=== PATIENT | male | born 1945 | race Caucasian/White ===

== ENCOUNTER 2017-03-06 06:03 | Inpatient (IN) | payer MEDICARE, BC ==
[~2017-03-06 06:03] MED LIST: Buffered Lidocaine 0.9% SYRIN* 5 ML/SYR SYRINGE INTRADERM ONE; Famotidine TAB* 20 MG PO ONE
[2017-03-06] MEDS ORDERED: Famotidine TAB* 20 MG ONE (06:06)
[2017-03-06] MEDS ORDERED: ceFAZolin 2 GM PREMIX(*) 2 GM/50 ML BAG IVPB ONE (06:06)
[2017-03-06] MEDS ORDERED: Buffered Lidocaine 0.9% SYRIN* 5 ML/SYR SYRINGE ONE (06:06)
[2017-03-06] MEDS ORDERED: KETAMINE HCL* 50 MG/ML 10 ML VIAL ONE (07:28)
[2017-03-06] MEDS ORDERED: Midazolam* 1 MG/ML 5 ML VIAL (5 MG) ONE (07:28)
[2017-03-06] MEDS ORDERED: fentaNYL* 50 MCG/ML 2 ML VIAL (100 MCG VIAL) ONE (07:28)
[2017-03-06] MEDS ORDERED: ceFAZolin 1 GM in Dextrose (*) 1 GM/50 ML BAG IVPB ONE (07:30)
[2017-03-06] MEDS ORDERED: Morphine PF AMP (0.5MG/ML)* 5 MG/10 ML AMP ONE (07:43)
[2017-03-06] MEDS ORDERED: Lidocaine 2% PF * 5 ML VIAL ONE (08:10)
[2017-03-06] MEDS ORDERED: Ondansetron INJ* 2 MG/ML VIAL ONE (08:10)
[2017-03-06] MEDS ORDERED: Ketorolac INJ* 30 MG/ML 1 ML VIAL ONE (08:10)
[2017-03-06] MEDS ORDERED: Propofol* 10 MG/ML 20 ML BTL IV PUSH ONE (08:10)
[2017-03-06] MEDS ORDERED: ROPIVACAINE 5 MG/ML 30 ML BTL (0.5%) ONE (08:11)
[2017-03-06] MEDS ORDERED: Phenylephrine IV* 40 MCG/ML 10 ML SYRINGE ONE (08:12)
[2017-03-06] MEDS ORDERED: oxyCODONE/Acetamin 5/325 MG* TAB PO PRN ×2 (08:28→08:29)
[2017-03-06] MEDS ORDERED: HYDROmorphone* 1 MG/ML 1 ML SYR IV PRN (08:28)
[2017-03-06] MEDS ORDERED: DiMENhydriNATE IV* 50 MG/ML VIAL IV PUSH PRN (08:28)
[2017-03-06] MEDS ORDERED: Naloxone* 0.4 MG/ML 1 ML VIAL IV PRN (08:29)
[2017-03-06] MEDS ORDERED: Nalbuphine* 20 MG/ML 1 ML VIAL IV PRN (08:29)
[2017-03-06] MEDS ORDERED: Ondansetron INJ* 2 MG/ML VIAL IV PRN ×2 (08:29→09:57)
[2017-03-06] MEDS ORDERED: Gabapentin CAP(*) 300 MG PO ONE (09:05)
[2017-03-06] MEDS ORDERED: HYDROmorphone* 1 MG/ML 1 ML SYR ONE (09:13)
[2017-03-06] MEDS ORDERED: Ondansetron TAB* 4 MG PO PRN (09:57)
[2017-03-06] MEDS ORDERED: Polyethylene Glycol 3350* 17 GM PACKET PO PRN (09:57)
[2017-03-06] MEDS ORDERED: diPHENhydraMINE IV* 50 MG/ML 1 ml VIAL (BENADRYL) IV PRN (09:57)
[2017-03-06] MEDS ORDERED: Bisacodyl SUPP* 10 MG SUPP PR PRN (09:57)
[2017-03-06] MEDS ORDERED: Gabapentin CAP(*) 300 MG ONE (11:13)
--- NOTE | 2017-03-06 11:44 | RAD ---
Indication: Immediate postop exam following LEFT total knee replacement. Comparison: February 01, 2017 Technique: Portable AP and cross table lateral views LEFT knee. Report: Status post total knee replacement. Anterior cutaneous dagoberto. Post-op fluid and gas is seen in the joint space and anterior subcutaneous tissues. Alignment is anatomic. No periprosthetic fracture evident. IMPRESSION: Unremarkable immediate postoperative appearance following LEFT knee replacement.
--- NOTE | 2017-03-06 11:52 | CONSULT ---
Subjective Date of Service: 03/06/17 Interval History: Patient seen in PACU. States he is feeling well presently. Denies any pain, no nausea. Says the surgery went well. Has been feeling well leading up to this surgery aside from the fact this his "knee wore out". No chest pain, SOB. Cleared by Dr. Vidal, his boat hand, for the surgery. Family History: Findings - F - aneurysm, M - cancer Social History: Findings - Former smoker, 8 drinks/week, no illicit drug use Past Medical History: Findings - HTN, HLD, CAD s/p PCI, obesity, diet- controlled DM Review of Systems - Measurements Intake and Output: Intake and Output Last 24 Hours 03/04/17 03/05/17 03/06/17 03/07/17 06:59 06:59 06:59 06:59 Intake Total 1800 Output Total 250 Balance 1550 Weight 130.181 kg Intake: IV Fluids 1800 LR 1700 NS 50ML, Cefazolin 1G 50 NS 50ML, Cefazolin 2G 50 Output: Askew 250 - Review of Systems Constitutional Symptoms: Negative: Fatigue, Fever Dermatology: Positive: Normal HEENT: Positive: Normal Eyes: Positive: Normal Thyroid: Positive: Normal Pulmonary: Positive: Normal Cardiology: Positive: Normal Gastroenterology: Positive: Normal Genital - Urinary: Positive: Normal Musculoskeletal: Positive: Joint Pain, Joint Stiffness Endocrinology: Positive: Normal Hematologic/Lymphatic: Negative: Anemia Neurology: Positive: Normal Psychiatry: Positive: Normal Objective Active Medications: Acetaminophen (Tylenol Tab*) 650 mg PO Q4H PRN PRN Reason: pain, fever Amlodipine Besylate (Norvasc Tab*) 2.5 mg PO QAM JAN Aspirin (Aspirin Ec Low Dose*) mg PO QAM JAN Atorvastatin Calcium (Lipitor*) 80 mg PO QPM JAN Bisacodyl (Dulcolax Supp*) 10 mg AR DAILY PRN PRN Reason: constipation Cyclobenzaprine HCl (Flexeril Tab*) 10 mg PO Q8H PRN PRN Reason: pain, muscle spasms Dimenhydrinate (Dramamine Iv*) 12.5 mg IV PUSH ONCE PRN PRN Reason: NAUSEA/VOMITING Stop: 03/06/17 08:29 Diphenhydramine HCl (Benadryl Iv*) 12.5 mg IV Q6H PRN PRN Reason: PRURITIS Docusate Sodium (Colace Cap*) 100 mg PO BID [facility] Famotidine (Pepcid Tab*) 20 mg PO ONCE ONE Stop: 03/06/17 06:01 Last Admin: 03/06/17 06:22 Dose: 20 mg Gabapentin (Neurontin Cap(*)) 300 mg PO ONCE ONE Stop: 03/06/17 09:06 Last Admin: 03/06/17 11:14 Dose: 300 mg Heparin Sodium (Porcine) (Heparin Vial(*)) 5,000 units SUBCUT Q8HR [facility] Hydromorphone HCl (Dilaudid Iv*) 0.2 mg IV Q5M PRN PRN Reason: PAIN - SEVERE Stop: 03/06/17 08:49 Lactated Ringer's (Lactated Ringers 1000 Ml Bag*) 1,000 mls @ 125 mls/hr IV PER RATE [facility] Last Admin: 03/06/17 06:23 Dose: 125 mls/hr Dextrose/Sodium Chloride (D5w 1/2 Ns 1000 Ml Bag*) 1,000 mls @ 125 mls/hr IV PER RATE [facility] Cefazolin Sodium 1 gm/ Sodium (Chloride) 50 mls @ 200 mls/hr IVPB Q8H [facility] Stop: 03/07/17 03:14 Ibuprofen (Motrin Tab*) 600 mg PO Q6H JAN Lactulose (Lactulose*) 30 ml PO Q6H PRN PRN Reason: constipation Lidocaine/Sodium Bicarbonate (Buffered Lidocaine 0.9% Syrin*) 0.2 ml INTRADERM ONCE ONE Stop: 03/06/17 06:01 Last Admin: 03/06/17 06:23 Dose: 0.2 ml Lisinopril (Prinivil Tab*) 10 mg PO QAM [facility] Magnesium Hydroxide (Milk Of Magnesia Liq*) 30 ml PO BID [facility] Metoprolol Tartrate (Lopressor Tab*) 25 mg PO BID [facility] Morphine Sulfate (Morphine Inj (Syringe)*) 4 mg IV Q2H PRN PRN Reason: PAIN - BREAKTHROUGH Multivitamins (Theragran Tab*) 1 tab PO DAILY [facility] Nalbuphine HCl (Nubain*) 5 mg IV Q6H PRN PRN Reason: pruritis Naloxone HCl (Narcan*) 0.08 mg IV Q2M PRN PRN Reason: respiratory depression Non-Formulary Medication (Niacin [Niacin]) 1 tab PO BID JAN Ondansetron HCl (Zofran Inj*) 4 mg IV Q6H PRN PRN Reason: Nausea/Vomiting Ondansetron HCl (Zofran Inj*) 4 mg IV Q6H PRN PRN Reason: nausea Ondansetron HCl (Zofran Tab*) 4 mg PO Q6H PRN PRN Reason: NAUSEA Oxycodone HCl (Roxycodone Tab*) 10 mg PO Q3H PRN PRN Reason: PAIN - SEVERE Oxycodone/Acetaminophen (Percocet 5/325 Tab*) 1 tab PO ONCE PRN PRN Reason: PAIN - MODERATE Stop: 03/07/17 08:29 Oxycodone/Acetaminophen (Percocet 5/325 Tab*) 2 tab PO Q4H PRN PRN Reason: Moderate Pain Oxycodone/Acetaminophen (Percocet 5/325 Tab*) 1 tab PO Q3H PRN PRN Reason: PAIN - MODERATE Pantoprazole Sodium (Protonix Tab (Nf)) 40 mg PO QPM JAN Polyethylene Glycol/Electrolytes (Miralax*) 17 gm PO DAILY PRN PRN Reason: Constipation Warfarin Sodium (Coumadin Tab(*)) 10 mg PO ONCE@1700 ONE PRN Reason: Protocol Stop: 03/06/17 17:01 Vital Signs 03/06/17 03/06/17 03/06/17 06:42 10:00 10:05 Temperature 97.7 F 96.8 F Pulse Rate 71 72 68 Respiratory 14 16 16 Rate Blood Pressure 98/69 88/59 93/57 (mmHg) O2 Sat by Pulse 93 95 94 Oximetry 03/06/17 03/06/17 03/06/17 10:10 10:15 10:29 Temperature Pulse Rate 66 63 66 Respiratory 16 16 16 Rate Blood Pressure 85/54 89/58 94/63 (mmHg) O2 Sat by Pulse 95 95 98 Oximetry 03/06/17 03/06/17 03/06/17 10:45 11:00 11:15 Temperature 97.0 F Pulse Rate 66 61 73 Respiratory 16 16 16 Rate Blood Pressure 92/61 97/69 96/62 (mmHg) O2 Sat by Pulse 97 97 96 Oximetry Oxygen Devices in Use Now: None Appearance: Elderly, M, laying in bed in NAD Eyes: No Scleral Icterus, PERRLA Ears/Nose/Mouth/Throat: - - Dry MM Neck: NL Appearance and Movements; NL JVP Respiratory: Symmetrical Chest Expansion and Respiratory Effort, Clear to Auscultation Cardiovascular: NL Sounds; No Murmurs; No JVD, RRR Abdominal: NL Sounds; No Tenderness; No Distention Lymphatic: No Cervical Adenopathy Extremities: No Edema, - - L knee with cryounit in place, dressing underneath c/ d/i Skin: No Rash or Ulcers Neurological: Alert and Oriented x 3 Assessment/Plan - Billing L TKA in a 72 yo M with hx of HTN, HLD, CAD s/p PCI, diet-controlled DM, GERD, gout 1) L TKA - management as per ortho - Coumadin started by Ortho, HSQ - Hb/Hct, BMP ordered for AM 2) HTN - BPs soft post-op, will hold home Lisinopril and Norvasc, place hold parameters on Metoprolol 3) CAD - continue beta-boris, ASA, statin 4) DM - diet controlled - monitor BGs qACHS as ordered, hold on insulin coverage for now 5) GERD - continue PPI 6) Hx of kidney stones - continue home Bicitra (ordered) 7) DVT PPx - warfarin/HSQ Thank you for this consult, we will continue to follow
[2017-03-06] MEDS: D5W 1/2 NS 1000 ML BAG* 1,000 ML IV SCH ×2 (12:25→20:36)
[2017-03-06] MEDS: oxyCODONE/Acetamin 5/325 MG* TAB PO PRN ×2 (15:10→17:25)
[2017-03-06] MEDS: ceFAZolin VIAL(*) 1 GM in NS 0.9% 50 ML* 50 ML IVPB SCH (16:21)
[2017-03-06] MEDS: Ibuprofen TAB* 600 MG PO SCH ×2 (16:21→21:50)
[2017-03-06] MEDS ORDERED: Warfarin TAB(*) 10 MG PO ONE (17:00)
[2017-03-06] MEDS: Atorvastatin* 80 MG TAB PO SCH (18:33)
[2017-03-06] MEDS: Omeprazole CAP* 20 MG PO SCH (18:33)
[2017-03-06] MEDS ORDERED: Dextrose 50% Syringe 50 ML* 25 GM/50 ML SYRINGE IV PUSH PRN (19:26)
[2017-03-06] MEDS ORDERED: Metoprolol Tartrate TAB* 50 mg PO SCH (21:00)
[2017-03-06] MEDS: Metoprolol Tartrate TAB* 25 MG PO SCH (21:35)
[2017-03-06] MEDS: Docusate CAP* 100 MG PO SCH (21:35)
[2017-03-06] MEDS: Magnesium Hydroxide LIQ* 30 ML UDC PO SCH (21:37)
[2017-03-06] MEDS: Insulin LISPRO* 1 UNITS UNIT SUBCUT SCH (21:37)
[2017-03-06] MEDS: NIACIN 500 MG PO SCH (21:44)
--- NOTE | 2017-03-06 22:30 | OP ---
DATE OF OPERATION: 03/06/17 - ROOM #341 DATE OF : 49 ATTENDING SURGEON: Estevan Pittman MD MERCHANDISING PROFESSOR: KASIA Flores ANESTHESIA: Spinal and regional. PRE-OPERATIVE DIAGNOSIS: Osteoarthritis, left knee. POST-OPERATIVE DIAGNOSIS: Osteoarthritis, left knee. OPERATIVE PROCEDURE: Left total knee arthroplasty. ESTIMATED BLOOD LOSS: Less than 50 cc. COMPLICATIONS: None. HARDWARE: Corona Person[employer] #9 femur, G tibia 10 mm polyethylene, 38 mm all polyethylene patellar button. INDICATIONS: Mr. Gage is a 72-year-old male who has been having continued troubles with left knee pain. He has end-stage arthritis, being completely bone -on-bone in the weightbearing as well as patellofemoral portion of his knee with significant spurs, sclerosis, and cyst formation. I discussed with him that he already had had a total knee arthroplasty on the right and other than a periprosthetic fracture later on when he had fallen, he had done well. I discussed with him that a left total knee arthroplasty should work well to decrease his pain and improve his function. Risks of surgery such as infection , scar formation, stiffness, DVT, pulmonary embolism, hardware failure, and continued pain were some of the risks discussed. He had been declared medically optimized and wished to proceed. KASIA Flores was present throughout the case from positioning, prepping, incision, implanting and closing and it could not have been done without her. DESCRIPTION OF PROCEDURE: The patient was brought to the OR and a femoral nerve block was placed. Spinal anesthesia with Astramorph was also introduced. Askew catheter was placed and tourniquet was placed over the proximal left thigh. Total tourniquet time would be 64 minutes. Left knee was prepped and then draped. She was present for all of the positioning and was needed for retraction as well as placement of the implants and closure. Esmarch was used to exsanguinate the leg and the tourniquet was raised. Midline incision was made centered about the patella and was carried down to the medial side of the tibial tubercle and upwards for about 7 or 8 cm. Incision was carried down through the skin and subcutaneous fact. Small bleeders encountered were ligated using electrocautery. Extensor mechanism was exposed and a sharp parapatellar arthrotomy was made. Quite a bit of clear yellowish joint fluid was encountered. Soft tissues were sharply elevated from the medial side of the tibia and the fat pad was sharply excised. Patella measured 28 mm in thickness and a nice 11 mm cut was taken. Patella was then easily subluxated laterally. The knee was flexed up. Nice exposure of the distal femur was obtained. Step drill was used to open the femoral canal and an intramedullary guide was placed. This was set at 4 degrees and to take 2 mm and this was seated nicely and made parallel with the epicondyles before pinning into place. Distal femoral cutting guide was then pinned into place. Intra-medullary guide was removed and the distal femoral cut was taken. A nice cut was taken. Sizer was then used and it sat nicely between a 9 and a 10. I rather would under-size, so holes were drilled and a 9 was called for. A 9 was placed and checking the anterior cut with the drill, it felt that it came nicely right at the top side of the femoral cortex, so that I would not notch. Anterior and posterior femoral cuts followed by the chamfer cuts were all taken. Attention was turned to the tibia. Step drill was used on the tibial canal, intramedullary guide was placed. Outrigger was assembled and adjusted until it appeared it would take 2 mm from the worn medial side. Alignment was then double checked and the proximal tibial cutting guide was then pinned into place. Proximal tibial cut was taken. A nice cut was taken as well. A 10 spacer block was used and the alignment appeared perfect. With flexion, it was a little bit loose as the system is designed that way and in extension, he actually had just a tiny bit of play. I thought this would work well and we could size to an 11 if we needed to. Pins were removed and the proximal tibia was sized. The G sat very nicely. The drill was used and then the proximal tibia was punched. Attention was returned to the femur and the G was placed and the notch cut was made as was the stud hole drills. A 10 trial was then placed with the G tibia and he came out nicely into full extension, flexed quite well, and occasionally the patella would tend to slide off a little bit. Patella was sized and a 38 sat very nicely. Holes were drilled and trial was snapped into place. With the trial in place, patellar tracking was perfect. Trial instrumentation was removed and the knee was copiously pulse lavaged. Cement was being prepared. Tibia followed by femur and patella were all cemented into place. Excess cement was removed and the cement was allowed to harden. Once the cement had hardened, the knee was again copiously pulse lavaged and searched for cement. Several small pieces were found. Knee was again pulse lavaged and no additional cement was found, and the knee was trialed with a 10. He no longer had that same little bit of play that we had with the trial, so I went with the 10 instead of an 11. Polyethylene was then snapped into place. Knee was again copiously pulse lavaged and his motion was quite good. Parapatellar arthrotomy was repaired using interrupted #1 Vicryl sutures and the tourniquet was let down. No significant bleeding was encountered. Knee was again copiously pulse lavaged, and the subcutaneous tissues were reapproximated with 2-0 Vicryl, skin was closed using dagoberto. Sterile dressing and a Cryo/Cuff were applied in the OR. The patient was then awakened stable and transferred to the recovery room. [id number]/[facility] #: [id number] GONZALO
[2017-03-07] MEDS: ceFAZolin VIAL(*) 1 GM in NS 0.9% 50 ML* 50 ML IVPB SCH ×2 (00:32→07:56)
[2017-03-07] MEDS: oxyCODONE TAB* 5 MG TAB PO PRN ×7 (00:34→22:42)
[2017-03-07] MEDS: D5W 1/2 NS 1000 ML BAG* 1,000 ML IV SCH (04:25)
--- NOTE | 2017-03-07 07:36 | PN ---
Subjective Date of Service: 03/07/17 Interval History: Patient seen this morning. Some discomfort in the leg overnight affecting his sleep but overall feels OK. Pain meds do help. Askew just removed. No BM yet. Tolerated dinner without N/V. Family History: Unchanged from Admission Social History: Unchanged from Admission Past Medical History: Unchanged from Admission Objective Active Medications: Acetaminophen (Tylenol Tab*) 650 mg PO Q4H PRN Aspirin (Aspirin Ec Low Dose*) 81 mg PO QAM JAN Atorvastatin Calcium (Lipitor*) 80 mg PO QPM JAN Bisacodyl (Dulcolax Supp*) 10 mg SC DAILY PRN Citric Acid/Sodium Citrate (Bicitra*) 15 ml PO DAILY JAN Cyclobenzaprine HCl (Flexeril Tab*) 10 mg PO Q8H PRN Dextrose (D50w Syringe 50 Ml*) 12.5 gm IV PUSH .PER PROTOCOL PRN Diphenhydramine HCl (Benadryl Iv*) 12.5 mg IV Q6H PRN Docusate Sodium (Colace Cap*) 100 mg PO BID JAN Heparin Sodium (Porcine) (Heparin Vial(*)) 5,000 units SUBCUT Q8HR JAN Lactated Ringer's (Lactated Ringers 1000 Ml Bag*) 1,000 mls @ 125 mls/hr IV PER RATE JAN Dextrose/Sodium Chloride (D5w 1/2 Ns 1000 Ml Bag*) 1,000 mls @ 125 mls/hr IV PER RATE JAN Cefazolin Sodium 1 gm/ Sodium (Chloride) 50 mls @ 200 mls/hr IVPB Q8H [facility] Insulin Human Lispro (Humalog*) 0 units SUBCUT ACHS JAN Lactulose (Lactulose*) 30 ml PO Q6H PRN Magnesium Hydroxide (Milk Of Magnesia Liq*) 30 ml PO BID JAN Metoprolol Tartrate (Lopressor Tab*) 25 mg PO BID JAN Morphine Sulfate (Morphine Inj (Syringe)*) 4 mg IV Q2H PRN Multivitamins (Theragran Tab*) 1 tab PO DAILY [facility] Pto Med Niacin 500 (Mg Caps) 1 dose PO BID JAN Omeprazole (Prilosec Cap*) 20 mg PO QPM JAN Ondansetron HCl (Zofran Inj*) 4 mg IV Q6H PRN Ondansetron HCl (Zofran Tab*) 4 mg PO Q6H PRN Oxycodone HCl (Roxycodone Tab*) 10 mg PO Q3H PRN Oxycodone/Acetaminophen (Percocet 5/325 Tab*) 1 tab PO Q3H PRN Pharmacy Profile Note (Coumadin Daily Reminder*) 1 note FOLLOW UP 1700 JAN Polyethylene Glycol/Electrolytes (Miralax*) 17 gm PO DAILY PRN Vital Signs 03/06/17 03/06/17 03/06/17 10:00 10:05 10:10 Temperature 96.8 F Pulse Rate 72 68 66 Respiratory 16 16 16 Rate Blood Pressure 88/59 93/57 85/54 (mmHg) O2 Sat by Pulse 95 94 95 Oximetry 03/06/17 03/06/17 03/06/17 10:15 10:29 10:45 Temperature Pulse Rate 63 66 66 Respiratory 16 16 16 Rate Blood Pressure 89/58 94/63 92/61 (mmHg) O2 Sat by Pulse 95 98 97 Oximetry 03/06/17 03/06/17 03/06/17 11:00 11:15 11:50 Temperature 97.0 F 97.4 F Pulse Rate 61 73 62 Respiratory 16 16 16 Rate Blood Pressure 97/69 96/62 115/84 (mmHg) O2 Sat by Pulse 97 96 96 Oximetry 03/06/17 03/06/17 03/06/17 11:53 12:25 12:56 Temperature 97.4 F 98.4 F Pulse Rate 62 69 Respiratory 16 16 16 Rate Blood Pressure 115/84 112/79 (mmHg) O2 Sat by Pulse 96 98 Oximetry 03/06/17 03/06/17 03/06/17 13:23 14:08 15:10 Temperature 98.0 F Pulse Rate 77 Respiratory 16 16 18 Rate Blood Pressure 118/69 (mmHg) O2 Sat by Pulse 97 Oximetry 03/06/17 03/06/17 03/06/17 16:00 16:01 17:25 Temperature 97.8 F Pulse Rate 77 Respiratory 18 18 Rate Blood Pressure 106/68 (mmHg) O2 Sat by Pulse 97 94 Oximetry 03/06/17 03/06/17 03/06/17 18:16 19:17 19:25 Temperature 97.7 F Pulse Rate 94 Respiratory 17 18 20 Rate Blood Pressure 118/69 (mmHg) O2 Sat by Pulse 95 Oximetry 03/06/17 03/06/17 03/06/17 19:44 20:44 21:36 Temperature 98.1 F Pulse Rate 87 Respiratory 17 18 18 Rate Blood Pressure 105/64 (mmHg) O2 Sat by Pulse 95 95 Oximetry 03/06/17 03/06/17 03/06/17 21:48 23:21 23:30 Temperature 98.4 F Pulse Rate 92 Respiratory 16 18 18 Rate Blood Pressure 108/66 (mmHg) O2 Sat by Pulse 95 Oximetry 03/06/17 03/07/17 03/07/17 23:36 00:00 00:34 Temperature Pulse Rate Respiratory 18 18 Rate Blood Pressure (mmHg) O2 Sat by Pulse 95 Oximetry 03/07/17 03/07/17 03/07/17 03:22 04:23 06:23 Temperature 98.5 F Pulse Rate 82 Respiratory 16 18 16 Rate Blood Pressure 110/68 (mmHg) O2 Sat by Pulse 94 Oximetry Oxygen Devices in Use Now: Nasal Cannula - 2L Appearance: Elderly, M, laying in bed in NAD Eyes: No Scleral Icterus Ears/Nose/Mouth/Throat: Mucous Membranes Moist Neck: NL Appearance and Movements; NL JVP Respiratory: Symmetrical Chest Expansion and Respiratory Effort, Clear to Auscultation Cardiovascular: NL Sounds; No Murmurs; No JVD, RRR Abdominal: NL Sounds; No Tenderness; No Distention Lymphatic: No Cervical Adenopathy Extremities: No Edema, - - L cryounit in place over L knee Skin: No Rash or Ulcers Neurological: Alert and Oriented x 3 Assess/Plan/Problems-Billing L TKA in a 72 yo M with hx of HTN, HLD, CAD s/p PCI, diet-controlled DM, GERD, gout 1) L TKA - management as per ortho - Coumadin started by Ortho, HSQ - Hb/Hct, BMP pending today 2) HTN - BPs a bit higher this morning, will continue to hold home Lisinopril and Norvasc, place hold parameters on Metoprolol 3) CAD - continue beta-boris, ASA, statin 4) DM - diet controlled at home since after gastric bypass - BGs elevated here, getting dextrose in IVF, HISS started - will change from D5 1/2NS to LR 5) GERD - continue PPI 6) Hx of kidney stones - continue home Bicitra 7) DVT PPx - warfarin/HSQ Thank you for this consult, we will continue to follow
[2017-03-07 07:45] LABS: Hematocrit 37 % (42-52); Hemoglobin 12.6 g/dl (14.0-18.0)
[2017-03-07 07:50] LABS: Comments Flag Yes
[2017-03-07] MEDS: Morphine INJ* 4 MG/ML 1 ML SYRINGE IV PRN ×4 (07:50→17:14)
[2017-03-07 07:57] LABS: BUN/Creatinine Ratio 16.8 (8-20); Calcium 8.1 mg/dL (8.6-10.3); EGFR African American 93.9 (>60); Potassium 4.6 mmol/L (3.5-5.0)
[2017-03-07] MEDS: Insulin LISPRO* 1 UNITS UNIT SUBCUT SCH ×4 (08:35→21:23)
[2017-03-07] MEDS: Metoprolol Tartrate TAB* 25 MG PO SCH ×2 (08:36→21:20)
[2017-03-07] MEDS: Sodium Citrate/Citric Acid* 15 ML UDC PO SCH (08:36)
[2017-03-07] MEDS: Vitamin THERAPEUTIC TAB PO SCH (08:36)
[2017-03-07] MEDS: Docusate CAP* 100 MG PO SCH ×2 (08:36→21:20)
[2017-03-07] MEDS: Aspirin EC Low Dose* 81 MG TAB.EC PO SCH (08:36)
[2017-03-07] MEDS: Magnesium Hydroxide LIQ* 30 ML UDC PO SCH ×2 (08:36→21:22)
[2017-03-07] MEDS: NIACIN 500 MG PO SCH ×2 (08:37→21:22)
--- NOTE | 2017-03-07 08:48 | PN ---
Progress Note - Progress Note SOAP: Subjective: []Patient seen OOB in chair. Complains of moderate left knee pain as he just transferred a little bit ago. Mild dizziness upon standing, now resolved. Denies SOB or chest pain. Objective: [] Vital Signs Temp 98.4 F 03/07/17 08:03 Pulse 100 03/07/17 08:03 Resp 18 03/07/17 08:03 BP 147/92 03/07/17 08:03 Pulse Ox 95 03/07/17 08:03 Intake & Output 03/06/17 03/07/17 03/07/17 18:59 06:59 18:59 Intake Total 2235 3346 Output Total 350 850 Balance 1885 2496 Intake: IV Fluids 1800 1921 D5W 1/2 NS 1921 LR 1700 NS 50ML, Cefazolin 1G 50 NS 50ML, Cefazolin 2G 50 IVPB 105 ABX - CEFAZOLIN 105 Oral 435 1320 Output: Askew 350 850 Other: # Bowel Movements 0 Laboratory Results - last 24 hr 03/06/17 03/06/17 03/06/17 12:41 17:13 20:59 Hgb Hct INR (Anticoag Therapy) Sodium Potassium Chloride Carbon Dioxide Anion Gap BUN Creatinine Est GFR ( Amer) Est GFR (Non-Af Amer) BUN/Creatinine Ratio Glucose POC Glucose (mg/dL) 144 H 206 H 228 H Calcium 03/07/17 03/07/17 03/07/17 07:27 07:27 07:27 Hgb 12.6 L Hct 37 L INR (Anticoag Therapy) 1.10 Sodium 129 L Potassium 4.6 Chloride 102 Carbon Dioxide 26 Anion Gap 1 L BUN 17 Creatinine 1.01 Est GFR ( Amer) 93.9 Est GFR (Non-Af Amer) 73.0 BUN/Creatinine Ratio 16.8 Glucose 180 H POC Glucose (mg/dL) Calcium 8.1 L 03/07/17 07:47 Hgb Hct INR (Anticoag Therapy) Sodium Potassium Chloride Carbon Dioxide Anion Gap BUN Creatinine Est GFR ( Amer) Est GFR (Non-Af Amer) BUN/Creatinine Ratio Glucose POC Glucose (mg/dL) 178 H Calcium Left knee dressing is dry and intact +DF/PF left ankle mild calf tenderness, no excessive edema, Mckenzie's negative sensation intact Assessment: []s/p Left total knee arthroplasty POD #1 Plan: []PT/OT WBAT LLE Coumadin w Heparin bridge- 8 mg today Appreciate medicine management of medical co morbidities
[2017-03-07] MEDS ORDERED: amLODIPine TAB* 5 MG PO SCH (09:00)
[2017-03-07] MEDS ORDERED: Lisinopril TAB* 10 MG PO SCH (09:00)
[2017-03-07] MEDS: Heparin VIAL(*) 5000 UNITS/ML VIAL (FIVE THOUSAND) SUBCUT SCH ×2 (13:18→22:42)
[2017-03-07] MEDS: Cyclobenzaprine TAB* 10 MG PO PRN ×2 (13:26→21:20)
[2017-03-07] MEDS: oxyCODONE/Acetamin 5/325 MG* TAB PO PRN (13:27)
[2017-03-07] MEDS ORDERED: Warfarin TAB(*) 4 MG PO ONE (17:00)
[2017-03-07] MEDS: Atorvastatin* 80 MG TAB PO SCH (17:11)
[2017-03-07] MEDS: Omeprazole CAP* 20 MG PO SCH (17:11)
[2017-03-08] MEDS: Cyclobenzaprine TAB* 10 MG PO PRN (04:03)
[2017-03-08] MEDS: oxyCODONE TAB* 5 MG TAB PO PRN ×4 (05:58→16:53)
[2017-03-08] MEDS: Heparin VIAL(*) 5000 UNITS/ML VIAL (FIVE THOUSAND) SUBCUT SCH (05:59)
[2017-03-08 06:23] LABS: Hematocrit 38 % (42-52); Hemoglobin 12.9 g/dl (14.0-18.0)
[2017-03-08] MEDS: Insulin LISPRO* 1 UNITS UNIT SUBCUT SCH ×4 (08:09→21:39)
[2017-03-08] MEDS: Magnesium Hydroxide LIQ* 30 ML UDC PO SCH ×2 (08:10→21:30)
[2017-03-08] MEDS: Docusate CAP* 100 MG PO SCH ×2 (08:10→21:30)
[2017-03-08] MEDS: NIACIN 500 MG PO SCH ×2 (08:10→21:41)
[2017-03-08] MEDS: Metoprolol Tartrate TAB* 25 MG PO SCH ×2 (08:10→21:35)
[2017-03-08] MEDS: Vitamin THERAPEUTIC TAB PO SCH (08:10)
[2017-03-08] MEDS: Sodium Citrate/Citric Acid* 15 ML UDC PO SCH (08:10)
[2017-03-08] MEDS: Aspirin EC Low Dose* 81 MG TAB.EC PO SCH (08:10)
[2017-03-08] MEDS: Acetaminophen TAB* 325 MG PO PRN ×2 (09:14→16:53)
--- NOTE | 2017-03-08 10:55 | PN ---
Subjective Date of Service: 03/08/17 Interval History: Patient seen this morning. Just got back from PT. Says he felt it went well, still having pain but responding to pain meds. Eating and drinking well. Urinating frequently, no dysuria. No fever or chills. Family History: Unchanged from Admission Social History: Unchanged from Admission Past Medical History: Unchanged from Admission Objective Active Medications: Acetaminophen (Tylenol Tab*) 650 mg PO Q4H PRN Aspirin (Aspirin Ec Low Dose*) 81 mg PO QAM JAN Atorvastatin Calcium (Lipitor*) 80 mg PO QPM JAN Bisacodyl (Dulcolax Supp*) 10 mg IN DAILY PRN Citric Acid/Sodium Citrate (Bicitra*) 15 ml PO DAILY JAN Cyclobenzaprine HCl (Flexeril Tab*) 10 mg PO Q8H PRN Dextrose (D50w Syringe 50 Ml*) 12.5 gm IV PUSH .PER PROTOCOL PRN Diphenhydramine HCl (Benadryl Iv*) 12.5 mg IV Q6H PRN Docusate Sodium (Colace Cap*) 100 mg PO BID JAN Lactated Ringer's (Lactated Ringers 1000 Ml Bag*) 1,000 mls @ 125 mls/hr IV PER RATE [facility] Lactated Ringer's (Lactated Ringers 1000 Ml Bag*) 1,000 mls @ 125 mls/hr IV PER RATE JAN Insulin Human Lispro (Humalog*) 0 units SUBCUT ACHS JAN Lactulose (Lactulose*) 30 ml PO Q6H PRN Magnesium Hydroxide (Milk Of Magnesia Liq*) 30 ml PO BID JAN Metoprolol Tartrate (Lopressor Tab*) 25 mg PO BID JAN Morphine Sulfate (Morphine Inj (Syringe)*) 4 mg IV Q2H PRN Multivitamins (Theragran Tab*) 1 tab PO DAILY JAN Pto Med Niacin 500 (Mg Caps) 1 dose PO BID JAN Omeprazole (Prilosec Cap*) 20 mg PO QPM JAN Ondansetron HCl (Zofran Inj*) 4 mg IV Q6H PRN Ondansetron HCl (Zofran Tab*) 4 mg PO Q6H PRN Oxycodone HCl (Roxycodone Tab*) 10 mg PO Q3H PRN Oxycodone/Acetaminophen (Percocet 5/325 Tab*) 1 tab PO Q3H PRN Pharmacy Profile Note (Coumadin Daily Reminder*) 1 note FOLLOW UP 1700 JAN Polyethylene Glycol/Electrolytes (Miralax*) 17 gm PO DAILY PRN Warfarin Sodium (Coumadin Tab(*)) 4 mg PO ONCE@1700 ONE Vital Signs 03/07/17 03/07/17 03/07/17 11:00 11:33 12:13 Temperature 98.7 F Pulse Rate 90 Respiratory 18 18 18 Rate Blood Pressure 148/96 (mmHg) O2 Sat by Pulse 95 Oximetry 03/07/17 03/07/17 03/07/17 13:00 13:13 13:26 Temperature Pulse Rate Respiratory 18 20 18 Rate Blood Pressure (mmHg) O2 Sat by Pulse Oximetry 03/07/17 03/07/17 03/07/17 13:27 15:07 15:19 Temperature Pulse Rate Respiratory 18 18 18 Rate Blood Pressure (mmHg) O2 Sat by Pulse Oximetry 03/07/17 03/07/17 03/07/17 15:20 15:49 16:00 Temperature 99.1 F Pulse Rate 102 Respiratory 18 17 Rate Blood Pressure 137/89 (mmHg) O2 Sat by Pulse 93 93 Oximetry 03/07/17 03/07/17 03/07/17 17:07 17:14 17:56 Temperature Pulse Rate Respiratory 18 18 Rate Blood Pressure (mmHg) O2 Sat by Pulse 93 Oximetry 03/07/17 03/07/17 03/07/17 18:14 19:05 19:15 Temperature 98.6 F Pulse Rate 112 Respiratory 18 18 16 Rate Blood Pressure 146/69 (mmHg) O2 Sat by Pulse 96 Oximetry 03/08/17 09:18 Temperature Pulse Rate 90 Respiratory Rate Blood Pressure (mmHg) O2 Sat by Pulse Oximetry Oxygen Devices in Use Now: Nasal Cannula - 2L Appearance: Elderly, M, laying in chair in NAD Eyes: No Scleral Icterus Ears/Nose/Mouth/Throat: Mucous Membranes Moist Neck: NL Appearance and Movements; NL JVP Respiratory: Symmetrical Chest Expansion and Respiratory Effort, Clear to Auscultation Cardiovascular: NL Sounds; No Murmurs; No JVD, RRR Abdominal: NL Sounds; No Tenderness; No Distention Lymphatic: No Cervical Adenopathy Extremities: - - Mild LLE pitting edema, IRASEMA wrap over L knee Skin: - Neurological: Alert and Oriented x 3 Result Diagrams: 03/08/17 05:48 03/07/17 07:27 Assess/Plan/Problems-Billing L TKA in a 72 yo M with hx of HTN, HLD, CAD s/p PCI, diet-controlled DM, GERD, gout 1) L TKA - management as per ortho - Coumadin started by Ortho, HSQ 2) HTN - BPs trending up. Will restart home Amlodipine today. Continue Metoprolol. Can resume home Lisinopril tomorrow if SBP>140, otherwise can resume after discharge 3) CAD - continue beta-boris, ASA, statin 4) DM - diet controlled at home since after gastric bypass - continue HISS, not needing much - would not d/c on DM medication but rather have patient follow-up with PCP 5) GERD - continue PPI 6) Hx of kidney stones - continue home Bicitra 7) DVT PPx - warfarin/HSQ Thank you for this consult, will sign off at this time. Please contact with any further questions.
[2017-03-08] MEDS: amLODIPine TAB* 5 MG PO SCH (12:27)
[2017-03-08] MEDS ORDERED: Warfarin TAB(*) 4 MG PO ONE (17:00)
[2017-03-08] MEDS: Omeprazole CAP* 20 MG PO SCH (17:26)
[2017-03-08] MEDS: Atorvastatin* 80 MG TAB PO SCH (17:26)
[2017-03-08] MEDS: oxyCODONE/Acetamin 5/325 MG* TAB PO PRN (19:31)
[2017-03-09] MEDS: oxyCODONE TAB* 5 MG TAB PO PRN ×3 (02:00→12:42)
[2017-03-09 06:11] LABS: Hematocrit 38 % (42-52); Hemoglobin 12.7 g/dl (14.0-18.0)
[2017-03-09] MEDS: Insulin LISPRO* 1 UNITS UNIT SUBCUT SCH ×2 (07:58→12:01)
[2017-03-09] MEDS: Sodium Citrate/Citric Acid* 15 ML UDC PO SCH (07:59)
[2017-03-09] MEDS: Magnesium Hydroxide LIQ* 30 ML UDC PO SCH (08:00)
[2017-03-09] MEDS: NIACIN 500 MG PO SCH (08:00)
[2017-03-09] MEDS: amLODIPine TAB* 5 MG PO SCH (08:01)
[2017-03-09] MEDS: Metoprolol Tartrate TAB* 25 MG PO SCH (08:01)
[2017-03-09] MEDS: Docusate CAP* 100 MG PO SCH (08:02)
[2017-03-09] MEDS: Vitamin THERAPEUTIC TAB PO SCH (08:02)
[2017-03-09] MEDS: Aspirin EC Low Dose* 81 MG TAB.EC PO SCH (08:02)
--- NOTE | 2017-03-09 11:10 | PN ---
Progress Note - Progress Note SOAP: Subjective: []Patient seen OOB in chair, hopes to go home later today. Yet to have BM. + flatus Denies SOB, dizziness or CP. Objective: [] Vital Signs Temp 98.3 F 03/09/17 07:47 Pulse 104 03/09/17 07:47 Resp 20 03/09/17 09:04 BP 132/79 03/09/17 07:47 Pulse Ox 95 03/09/17 08:00 Intake & Output 03/08/17 03/09/17 03/09/17 18:59 06:59 18:59 Intake Total 1530 1050 225 Output Total 2675 850 Balance -1145 200 225 Intake: Oral 1530 1050 225 Output: Urine 2675 850 Laboratory Results - last 24 hr 03/08/17 03/08/17 03/08/17 12:18 17:18 17:24 Hgb Hct INR (Anticoag Therapy) POC Glucose (mg/dL) 174 H 79 152 H 03/08/17 03/09/17 03/09/17 21:33 05:28 05:28 Hgb 12.7 L Hct 38 L INR (Anticoag Therapy) 1.85 H POC Glucose (mg/dL) 182 H 03/09/17 07:37 Hgb Hct INR (Anticoag Therapy) POC Glucose (mg/dL) 164 H Left knee incision benign calf NT and soft + DF/PF ankle Assessment: []s/p Left total knee arthroplasty POD #3 Plan: []Home later today after PT and BM Coumadin and Percocet rx sent to pharmacy Follow up with Dr. Pittman in 3-4 weeks in office
[2017-03-09 12:37] VITALS: BP 134/76
[2017-03-09] MEDS ORDERED: Warfarin TAB(*) 2 MG PO ONE (13:00)
--- NOTE | 2017-03-09 22:57 | DS ---
DISCHARGE SUMMARY: DATE OF ADMISSION: 03/06/17 DATE OF DISCHARGE: 03/09/17 ATTENDING PHYSICIAN: Dr. Estevan Pittman. (DICTATED BY KASIA HOLLAND) ADMISSION DIAGNOSIS: Osteoarthritis, left knee. DISCHARGE DIAGNOSIS: Osteoarthritis, left knee. SURGERY PERFORMED: Left total knee arthroplasty. HOSPITAL COURSE: The patient is a 72-year-old male who has been having increased pain in his left knee due to end-stage osteoarthritis with bone-on- bone weightbearing and patellofemoral portion of his knee. The patient failed conservative management. He did have a previous knee replacement done on the right side and done well with the prosthesis, therefore he elected to proceed with left knee surgery. He was taken to the operating room under the care of Estevan Pittman for the aforementioned procedure on the date of 03/06/17. He tolerated the procedure well and left the operating room in stable condition. Postoperatively, he progressed satisfactorily with his physical therapy and occupational therapy goals. He had no postoperative complications and was felt to be stable for discharge both medically and orthopedically on the date of . CONDITION ON DISCHARGE: The patient is afebrile, his vital signs are stable. His left knee incision is healing without evidence of infection, his calf is soft is nontender. His neurovascular status is intact distally. PLAN: Discharge to home. He will continue on Coumadin for his anticoagulation. He will take 2 mg today 03/09/17, 2 mg 03/10/17, 2 mg 03/11/17, and 2 mg . He will have a repeat INR blood draw on 03/13/17, February with subsequent dose from the office to follow. He has a prescription sent for pain to his pharmacy that being Percocet 5/325 mg 1 to 2 tabs q.4 to 6 hours as needed. He will be seen by visiting home nurse for staple removal in roughly 10 to 12 days. He will contact the office if he has any difficulties with increased pain or swelling in his knee or calf drainage, redness, shortness of breath, chest pain. Otherwise, he will follow up in the office with Dr. Pittman in roughly 3 to 4 weeks. KASIA HOLLAND [id number]/[facility] #: [id number]
== END 2017-03-09 13:20 | disposition home health service (06) | DRG 470 ==
LOC: AA 06:03 → SSU 11:50
PROVIDERS: ADMIT Orthopaedic Surgery; ATTEND Orthopaedic Surgery
PROC: 0SRD0J9 Replacement of Left Knee Joint with Synthetic Substitute, Cemented, Open Approach (ICD-10-PCS; principal; 2017-03-06 07:30)
DX: M17.12 Unilateral primary osteoarthritis, left knee (principal); E11.9 Type 2 diabetes mellitus without complications; Z68.41 Body mass index [BMI] 40.0-44.9, adult; Z96.651 Presence of right artificial knee joint; E78.5 Hyperlipidemia, unspecified; H91.90 Unspecified hearing loss, unspecified ear; I10 Essential (primary) hypertension; G47.30 Sleep apnea, unspecified; K21.9 Gastro-esophageal reflux disease without esophagitis; M10.9 Gout, unspecified; M62.838 Other muscle spasm; M51.26 Other intervertebral disc displacement, lumbar region; I25.10 Atherosclerotic heart disease of native coronary artery without angina pectoris; E66.9 Obesity, unspecified; Z97.2 Presence of dental prosthetic device (complete) (partial); Z95.5 Presence of coronary angioplasty implant and graft; Z82.62 Family history of osteoporosis; Z80.9 Family history of malignant neoplasm, unspecified; Z82.49 Family history of ischemic heart disease and other diseases of the circulatory system; Z98.84 Bariatric surgery status; Z87.891 Personal history of nicotine dependence; Z72.89 Other problems related to lifestyle; Z87.442 Personal history of urinary calculi
CPT/HCPCS: 36415; 80048; 85014; 85018; 85610; 88305; 88311; 94760; A9270-GY; J0690; J1170; J1200; J1644; J1885; J2250; J2270; J2405; J2704; J2795; J3010

== ENCOUNTER 2020-04-27 05:53 | Inpatient (IN) ==
[~2020-04-27 05:53] MED LIST changes: +Acetaminophen IV 1 GM/100ML 1,000 MG/100 ML VIAL IVPB ONE; -Buffered Lidocaine 0.9% SYRIN* 5 ML/SYR SYRINGE INTRADERM ONE; +Buffered Lidocaine 1% SYRIN 1 ml INTRADERM ONE; -Famotidine TAB* 20 MG PO ONE; +Lactated Ringers 1000 ml BAG 1,000 ML IV SCH
[2020-04-27] MEDS ORDERED: Buffered Lidocaine 1% SYRIN 1 ml INTRADERM ONE (06:00)
[2020-04-27] MEDS ORDERED: Lactated Ringers 1000 ml BAG 1,000 ML IV SCH ×2 (06:00→12:00)
[2020-04-27] MEDS ORDERED: ceFAZolin 2 GM PREMIX 2 GM/50 ML BAG ONE (06:14)
[2020-04-27] MEDS ORDERED: ceFAZolin 1 GM ADVAN 1 GM ADDV.VIAL IVPB ONE (06:54)
[2020-04-27] MEDS ORDERED: Vancomycin 1,000 MG VIAL ONE (07:04)
[2020-04-27] MEDS ORDERED: Ondansetron 4 mg VIAL 2 MG/ML 2 ml VIAL ONE (07:09)
[2020-04-27] MEDS ORDERED: Succinylcholine 200 mg VIAL 20 mg/ml 10 ml VIAL (200 mg) ONE (07:09)
[2020-04-27] MEDS ORDERED: Acetaminophen IV 1 GM/100ML 100 ML ONE (07:09)
[2020-04-27] MEDS ORDERED: Propofol 10 MG/ML 20 ML BTL ONE (07:09)
[2020-04-27] MEDS ORDERED: fentaNYL 100 mcg/2 ml 50 MCG/ML VIAL ONE (07:09)
[2020-04-27] MEDS ORDERED: Dexamethasone IV 4 MG/ML VIAL 1 ml VIAL ONE (07:09)
[2020-04-27] MEDS ORDERED: Midazolam 2 mg/2 ml VIAL 1 mg/ml 2 ml VIAL (2 mg) ONE (07:10)
[2020-04-27] MEDS ORDERED: Rocuronium 50 mg VIAL 10 mg/ml 5 ml VIAL (50 mg) ONE ×2 (08:07→09:30)
[2020-04-27] MEDS ORDERED: Phenylephrine IV 10 MG/ML 1 ml VIAL ONE (10:28)
[2020-04-27] MEDS ORDERED: EPHEDrine (Pressors) 50 MG/ML VIAL ONE (10:28)
[2020-04-27] MEDS ORDERED: Ondansetron 4 mg VIAL 2 MG/ML 2 ml VIAL IV PRN ×2 (10:51→11:57)
[2020-04-27] MEDS ORDERED: Naloxone 0.4 mg VIAL 0.4 mg/ml 1 ml VIAL IV PRN (10:51)
[2020-04-27] MEDS ORDERED: oxyCODONE/Acetamin 5/325 mg TAB PO PRN (10:51)
[2020-04-27] MEDS ORDERED: ceFAZolin VIAL VIAL ONE (11:13)
[2020-04-27] MEDS ORDERED: Sugammadex 500 MG/5 ML 5 ml VIAL IV PUSH ONE (11:40)
[2020-04-27] MEDS ORDERED: Ondansetron ODT 4 mg TAB 4 MG TAB PO PRN (11:57)
[2020-04-27] MEDS ORDERED: Morphine 2 MG/ML SYRINGE IV PRN (11:57)
[2020-04-27] MEDS ORDERED: diPHENhydraMINE IV 50 MG/ML 1 ml VIAL (BENADRYL) IV PRN (11:57)
[2020-04-27] MEDS ORDERED: Magnesium Hydroxide LIQ 30 ML UDC PO PRN (11:57)
[2020-04-27] MEDS ORDERED: Lactulose 30 ml UDC PO PRN (11:57)
[2020-04-27] MEDS ORDERED: diPHENhydraMINE 25 mg TAB PO PRN (11:57)
[2020-04-27] MEDS ORDERED: Polyethylene Glycol 3350 17 GM PACKET PO PRN (12:00)
[2020-04-27] MEDS ORDERED: oxyCODONE/Acetamin 5/325 mg TAB ONE (12:52)
[2020-04-27] MEDS ORDERED: Dextrose 50% Syringe 50 ml 25 GM/50 ML SYRINGE IV PUSH PRN ×2 (14:14→17:49)
[2020-04-27] MEDS: ceFAZolin 1 GM ADVAN 1 GM in NS 0.9% 50 ML 50 ML IVPB SCH ×2 (15:49→23:37)
[2020-04-27] MEDS: oxyCODONE/Acetamin 5/325 mg TAB PO PRN ×2 (17:02→23:37)
[2020-04-27] MEDS: Magnesium Hydroxide LIQ 30 ML UDC PO SCH (19:42)
[2020-04-27] MEDS ORDERED: CMCS - OMEGA-3 FATTY ACID 1000 mg(NF) PO SCH (21:00)
[2020-04-28 06:23] LABS: Calcium 8.3 mg/dL (8.6-10.3); Potassium 4.7 mmol/L (3.5-5.0)
[2020-04-28 06:29] LABS: BUN/Creatinine Ratio 20.9 (8-20); EGFR African American 98.8 (>60); EGFR Non-African American 81.7 (>60)
[2020-04-28] MEDS: Magnesium Hydroxide LIQ 30 ML UDC PO SCH (08:15)
[2020-04-28] MEDS: ceFAZolin 1 GM ADVAN 1 GM in NS 0.9% 50 ML 50 ML IVPB SCH (08:18)
[2020-04-28 08:54] LABS: ABS Basophils 0.1 10^3/ul (0-0.2); ABS Monocytes 0.7 10^3/ul (0-0.8); ABS Neutrophils 10.5 10^3/ul (1.5-7.7); Eosinophil % 0.1 %; Hematocrit 38 % (42-52); Hemoglobin 13.2 g/dL (14.0-18.0); Lymphocyte % 8.5 %; Mean Corpuscular HGB Conc 35 g/dL (31-36); Mean Corpuscular Hemoglobin 31 pg (27-31); Mean Corpuscular Volume 89 fL (80-94); Mean Platelet Volume 8.2 fL (7.4-10.4); Platelet Count 217 10^3/uL (150-450); Red Blood Count 4.26 10^6 /uL (4.18-5.48); Red Cell Distribution Width 13 % (10-15); White Blood Count 12.3 10^3/uL (3.5-10.8)
[2020-04-28] MEDS ORDERED: Vitamin THERAPEUTIC TAB PO SCH (09:00)
[2020-04-28] MEDS ORDERED: Aspirin EC 81 mg TAB.EC (enteric coated) PO SCH (09:00)
[2020-04-28] MEDS ORDERED: Sodium Citrate/Citric Acid LIQ 15 ML UDC PO SCH (09:00)
[2020-04-28] MEDS: oxyCODONE/Acetamin 5/325 mg TAB PO PRN (11:02)
[2020-04-28 11:19] VITALS: BP 110/69
== END 2020-04-28 13:20 | disposition home health service (06) | DRG 483 ==
LOC: AA 05:53 → SSU 11:58
PROVIDERS: ADMIT Orthopaedic Surgery; ATTEND Orthopaedic Surgery